=== PATIENT | female | born 1980 | race Caucasian/White ===

== ENCOUNTER 2020-02-20 20:35 | Inpatient (IN) | payer MEDICAID, OTHER ==
[~2020-02-20] VITALS: Ht 160 cm; Wt 68.2 kg
[~2020-02-20 20:35] MED LIST: ETHI1TAB26 PO; LITH300CRT PO
[2020-02-20] MEDS ORDERED: HALOPERIDOL 5 MG TABLET PO PRN (20:45)
[2020-02-20 21:14] VITALS: BP 122/89
[2020-02-20] MEDS ORDERED: ZOLPIDEM TARTRATE 10 MG TABLET PO PRN (21:30)
[2020-02-20] MEDS ORDERED: INFLUENZA VIRUS VACCINE QVS 2020-21 (6MO+)/PF 60 MCG/0.5 ML SYRINGE IM ONE (22:15)
[2020-02-21] MEDS ORDERED: MAGNESIUM HYDROXIDE SUSPENSION 30 ML UDCUP PO PRN (08:15)
[2020-02-21] MEDS ORDERED: GuaiFENesin/D-METHORPHAN [SUGAR-FREE] 200-20MG/10 ML SYRUP UDCUP PO PRN (08:15)
[2020-02-21] MEDS ORDERED: CloNIDine HCL 0.1 MG TABLET PO PRN (08:15)
[2020-02-21] MEDS ORDERED: LOPERAMIDE HCL 2 MG CAPSULE PO PRN (08:15)
[2020-02-21] MEDS ORDERED: ALBUTEROL SULFATE HFA 90 MCG/PUFF 8 GM INHALER IH PRN (08:15)
[2020-02-21] MEDS ORDERED: IBUPROFEN 400 MG TABLET PO PRN (08:15)
[2020-02-21] MEDS ORDERED: PETROLATUM,WHITE 28 GM JELLY TP PRN (08:15)
[2020-02-21] MEDS ORDERED: NICOTINE 14 MG/24 HOUR PATCH TD PRN (08:15)
[2020-02-21] MEDS ORDERED: DOCUSATE SODIUM 100 MG CAPSULE PO PRN (08:15)
[2020-02-21] MEDS ORDERED: MAG HYDROX/AL HYDROX/SIMETH ES 30 ML SUSPENSION UDCUP PO PRN (08:15)
[2020-02-21] MEDS ORDERED: ONDANSETRON HCL 4 MG TABLET PO PRN (08:15)
[2020-02-21] MEDS ORDERED: ACETAMINOPHEN 325 MG TABLET PO PRN (08:15)
[2020-02-21 08:17] VITALS: BP 129/86
[2020-02-21] MEDS: OLANZapine 5 MG TABLET PO SCH ×2 (08:37→16:16)
[2020-02-21 16:39] VITALS: BP 121/88
[2020-02-22 07:00] LABS: CALCIUM, TOTAL 9.9 mg/dL (8.8-10.5); CREATININE 1.02 mg/dL (0.60-1.30); POTASSIUM 4.2 mmol/L (3.5-5.1)
[2020-02-22] MEDS: OLANZapine 5 MG TABLET PO SCH (08:35)
[2020-02-22 16:23] VITALS: BP 130/85
[2020-02-22] MEDS: LORazepam 2 MG TABLET PO PRN (16:58)
[2020-02-23] MEDS: LORazepam 2 MG TABLET PO PRN ×2 (08:28→16:59)
[2020-02-23] MEDS: PALIPERIDONE 3 MG ER TABLET PO SCH (08:28)
[2020-02-23 18:14] VITALS: BP 123/88
[2020-02-24 08:00] VITALS: BP 133/83
[2020-02-24] MEDS: LORazepam 2 MG TABLET PO PRN (08:15)
[2020-02-24] MEDS: PALIPERIDONE 3 MG ER TABLET PO SCH (08:15)
[2020-02-24] MEDS ORDERED: PALI3TAB14 PO (10:30)
== END 2020-02-24 15:00 | disposition home or self-care (01) | DRG 750 ==
LOC: 3EC 20:43
PROVIDERS: ADMIT Psychiatry & Neurology Psychiatry; ATTEND Psychiatry & Neurology Psychiatry
DX: F25.9 Schizoaffective disorder, unspecified (principal); E87.0 Hyperosmolality and hypernatremia; R00.0 Tachycardia, unspecified; Z88.1 Allergy status to other antibiotic agents; Z88.8 Allergy status to other drugs, medicaments and biological substances; Z79.899 Other long term (current) drug therapy; Z28.21 Immunization not carried out because of patient refusal
CPT/HCPCS: 87081

== ENCOUNTER 2020-02-25 09:32 | Inpatient (IN) | payer MEDICAID, OTHER ==
[~2020-02-25] VITALS: Ht 162.6 cm; Wt 69.7 kg
[~2020-02-25 09:32] MED LIST changes: -ETHI1TAB26 PO; -LITH300CRT PO; +PALI3TAB14 PO
[2020-02-25 09:52] LABS: BASOPHILS % (AUTO) 0.5 % (0.0-2.0); EOSINOPHILS % (AUTO) 0.1 % (1.0-6.0); HEMOGLOBIN 12.9 g/dL (12.0-16.0); LYMPHOCYTES # (AUTO) 1.1 K/uL (1.0-4.8); LYMPHOCYTES % (AUTO) 11.1 % (22.0-44.0); MEAN CORPUSCULAR HEMOGLOBIN 29.7 pg (26.0-34.0); MEAN CORPUSCULAR HGB CONC 34.8 G/dL (31.0-37.0); MEAN CORPUSCULAR VOLUME 86 fL (80-100); MONOCYTES # (AUTO) 0.7 K/uL (0.1-1.0); MONOCYTES % (AUTO) 7.3 % (2.0-9.0); NEUTROPHILS # (AUTO) 7.8 K/uL (1.8-7.7); PLATELET COUNT (AUTO) 238 K/uL (150-450); RED BLOOD CELL COUNT(AUTO) 4.34 MIL/uL (4.00-5.20); RED CELL DISTRIBUTION WIDTH 12.8 % (11.5-14.5)
[2020-02-25 10:06] LABS: ANION GAP 11 mmol/L (8-16); CALCIUM, TOTAL 9.3 mg/dL (8.8-10.5); CARBON DIOXIDE 26 mmol/L (22-29); CHLORIDE 105 mmol/L (98-107); CREATININE 1.08 mg/dL (0.60-1.30); GLOMERULAR FILTR. RATE CALC 56 mL/min (>60); GLUCOSE,RANDOM 106 mg/dL (70-110); POTASSIUM 3.7 mmol/L (3.5-5.1); SODIUM SERUM 142 mmol/L (136-145); UREA NITROGEN, BLOOD 16 mg/dL (7-18)
[2020-02-25 10:07] LABS: LITHIUM < 0.20 mmol/L (0.60-1.20)
[2020-02-25 10:13] LABS: ALANINE AMINOTRANSFERASE 56 U/L (12-78); ALBUMIN 3.7 g/dL (3.4-5.0); ALKALINE PHOSPHATASE 61 U/L (46-116); ASPARTATE AMINOTRANSFERASE 36 U/L (15-37); BILIRUBIN,TOTAL 0.9 mg/dL (0.1-1.0); TOTAL PROTEIN, SERUM 7.4 g/dL (6.4-8.2)
[2020-02-25] MEDS ORDERED: ZOLPIDEM TARTRATE 10 MG TABLET PO PRN (12:00)
[2020-02-25] MEDS: LORazepam 2 MG TABLET PO PRN (12:09)
[2020-02-25 12:55] LABS: COVID AG,FIA SOURCE NASOPHARYNGEAL
[2020-02-25 13:05] LABS: BILIRUBIN,URINE NEGATIVE (NEGATIVE); GLUCOSE, URINE (UA) NEGATIVE (NEGATIVE); KETONES,URINE NEGATIVE (NEGATIVE); LEUKOCYTE ESTERASE ,URINE NEGATIVE (NEGATIVE); NITRATE,URINE NEGATIVE (NEGATIVE); OCCULT BLOOD,URINE NEGATIVE (NEGATIVE); PROTEIN,URINE NEGATIVE (NEGATIVE); UROBILINOGEN,URINE 0.2 mg/dL (<=1.0)
[2020-02-25 13:06] LABS: APPEARANCE,URINE CLEAR (CLEAR)
[2020-02-25 13:13] LABS: AMPHET/METH SCREEN,URINE NEGATIVE (NEGATIVE); BARBITURATE SCREEN, URINE NEGATIVE (NEGATIVE); BENZODIAZEPINES SCREEN,URINE NEGATIVE (NEGATIVE); CANNABINOID SCREEN,URINE NEGATIVE (NEGATIVE); COCAINE SCREEN,URINE NEGATIVE (NEGATIVE); METHADONE SCREEN, URINE NEGATIVE (NEGATIVE); OPIATE SCREEN,URINE NEGATIVE (NEGATIVE)
[2020-02-25 13:18] LABS: PHENCYCLIDINE SCREEN,URINE NEGATIVE (NEGATIVE)
[2020-02-25 16:34] VITALS: BP 114/87
[2020-02-25] MEDS ORDERED: INFLUENZA VIRUS VACCINE QVS 2020-21 (6MO+)/PF 60 MCG/0.5 ML SYRINGE IM ONE (17:45)
[2020-02-26 01:50] VITALS: BP 102/78
[2020-02-26] MEDS ORDERED: NICOTINE 14 MG/24 HOUR PATCH TD PRN (06:45)
[2020-02-26] MEDS ORDERED: GuaiFENesin/D-METHORPHAN [SUGAR-FREE] 200-20MG/10 ML SYRUP UDCUP PO PRN (06:45)
[2020-02-26] MEDS ORDERED: ONDANSETRON HCL 4 MG TABLET PO PRN (06:45)
[2020-02-26] MEDS ORDERED: IBUPROFEN 400 MG TABLET PO PRN (06:45)
[2020-02-26] MEDS ORDERED: PETROLATUM,WHITE 28 GM JELLY TP PRN (06:45)
[2020-02-26] MEDS ORDERED: ACETAMINOPHEN 325 MG TABLET PO PRN (06:45)
[2020-02-26] MEDS ORDERED: MAGNESIUM HYDROXIDE SUSPENSION 30 ML UDCUP PO PRN (06:45)
[2020-02-26] MEDS ORDERED: DOCUSATE SODIUM 100 MG CAPSULE PO PRN (06:45)
[2020-02-26] MEDS ORDERED: CloNIDine HCL 0.1 MG TABLET PO PRN (06:45)
[2020-02-26] MEDS ORDERED: MAG HYDROX/AL HYDROX/SIMETH ES 30 ML SUSPENSION UDCUP PO PRN (06:45)
[2020-02-26] MEDS ORDERED: ALBUTEROL SULFATE HFA 90 MCG/PUFF 8 GM INHALER IH PRN (06:45)
[2020-02-26] MEDS ORDERED: LOPERAMIDE HCL 2 MG CAPSULE PO PRN (06:45)
[2020-02-26 08:10] VITALS: BP 118/69
[2020-02-26 08:13] LABS: CHOL/HDL RATIO 4.7 (3.9-5.7); FREE T4 (FREE THYROXINE) 1.22 ng/dL (0.76-1.46); THYROID STIMULATING HORMONE 1.72 uIU/mL (0.36-3.74)
[2020-02-26] MEDS: OLANZapine 10 MG RAPDIS TABLET PO SCH ×2 (09:45→19:31)
[2020-02-26 16:30] VITALS: BP 133/68
[2020-02-27 01:21] VITALS: BP 127/76
[2020-02-27] MEDS: OLANZapine 10 MG RAPDIS TABLET PO SCH ×2 (08:18→20:38)
[2020-02-27] MEDS: LORazepam 2 MG TABLET PO PRN ×2 (08:19→16:10)
[2020-02-27] MEDS: GABAPENTIN 300 MG CAPSULE PO SCH ×2 (10:42→16:10)
[2020-02-27 16:02] VITALS: BP 116/60
[2020-02-27] MEDS: HALOPERIDOL 5 MG TABLET PO PRN (16:10)
[2020-02-28 01:16] VITALS: BP 118/66
[2020-02-28 08:03] VITALS: BP 107/68
[2020-02-28] MEDS: GABAPENTIN 300 MG CAPSULE PO SCH ×2 (08:43→16:38)
[2020-02-28] MEDS: OLANZapine 10 MG RAPDIS TABLET PO SCH ×2 (08:43→20:34)
[2020-02-28] MEDS: LORazepam 2 MG TABLET PO PRN (10:20)
[2020-02-28 16:08] VITALS: BP 124/71
[2020-02-29 01:48] VITALS: BP 120/74
[2020-02-29] MEDS: OLANZapine 10 MG RAPDIS TABLET PO SCH ×2 (08:18→20:48)
[2020-02-29] MEDS: GABAPENTIN 300 MG CAPSULE PO SCH ×2 (08:19→16:32)
[2020-02-29] MEDS: LORazepam 2 MG TABLET PO PRN (10:02)
[2020-02-29] MEDS: HALOPERIDOL 5 MG TABLET PO PRN (10:02)
[2020-02-29 16:11] VITALS: BP 111/75
[2020-03-01 01:18] VITALS: BP 106/72
[2020-03-01] MEDS: HALOPERIDOL 5 MG TABLET PO PRN (08:11)
[2020-03-01] MEDS: OLANZapine 10 MG RAPDIS TABLET PO SCH ×2 (08:11→20:08)
[2020-03-01] MEDS: GABAPENTIN 300 MG CAPSULE PO SCH ×2 (08:11→16:26)
[2020-03-01] MEDS: LORazepam 2 MG TABLET PO PRN ×2 (08:11→16:26)
[2020-03-01 16:03] VITALS: BP 111/61
[2020-03-02 03:47] VITALS: BP 103/68
[2020-03-02 08:15] VITALS: BP 121/72
[2020-03-02] MEDS: GABAPENTIN 300 MG CAPSULE PO SCH ×2 (08:29→16:20)
[2020-03-02] MEDS: OLANZapine 10 MG RAPDIS TABLET PO SCH ×2 (08:29→20:45)
[2020-03-02] MEDS: BuPROPion HCL XL 150 MG ER TABLET PO SCH (11:45)
[2020-03-02 16:11] VITALS: BP 124/78
[2020-03-02] MEDS: LORazepam 2 MG TABLET PO PRN (20:45)
[2020-03-03 00:11] VITALS: BP 122/74
[2020-03-03] MEDS: BuPROPion HCL XL 150 MG ER TABLET PO SCH (08:03)
[2020-03-03] MEDS: LORazepam 2 MG TABLET PO PRN ×2 (08:04→16:02)
[2020-03-03] MEDS: GABAPENTIN 300 MG CAPSULE PO SCH ×2 (08:04→16:02)
[2020-03-03] MEDS: OLANZapine 10 MG RAPDIS TABLET PO SCH ×2 (08:04→20:06)
[2020-03-03 08:16] VITALS: BP 135/73
[2020-03-03 16:26] VITALS: BP 119/78
[2020-03-04 00:37] VITALS: BP 116/75
[2020-03-04] MEDS: BuPROPion HCL XL 150 MG ER TABLET PO SCH (08:05)
[2020-03-04] MEDS: OLANZapine 10 MG RAPDIS TABLET PO SCH ×2 (08:05→21:00)
[2020-03-04] MEDS: HALOPERIDOL 5 MG TABLET PO PRN ×2 (08:05→17:29)
[2020-03-04] MEDS: GABAPENTIN 300 MG CAPSULE PO SCH ×2 (08:05→16:29)
[2020-03-04] MEDS: LORazepam 2 MG TABLET PO PRN ×2 (08:05→17:29)
[2020-03-04 08:08] VITALS: BP 121/82
[2020-03-04 16:00] VITALS: BP 100/74
[2020-03-05 02:00] VITALS: BP 126/78
[2020-03-05] MEDS: LORazepam 2 MG TABLET PO PRN ×2 (09:04→18:45)
[2020-03-05] MEDS: OLANZapine 10 MG RAPDIS TABLET PO SCH ×2 (09:04→20:55)
[2020-03-05] MEDS: HALOPERIDOL 5 MG TABLET PO PRN (09:04)
[2020-03-05] MEDS: BuPROPion HCL XL 150 MG ER TABLET PO SCH (09:04)
[2020-03-05] MEDS: GABAPENTIN 300 MG CAPSULE PO SCH ×2 (09:04→16:02)
[2020-03-05 15:21] VITALS: BP 121/76
[2020-03-05 16:19] VITALS: BP 118/74
[2020-03-05 18:44] VITALS: BP 107/72
[2020-03-06 01:01] VITALS: BP 102/76
[2020-03-06 08:27] VITALS: BP 110/71
[2020-03-06] MEDS: OLANZapine 10 MG RAPDIS TABLET PO SCH ×2 (08:27→20:04)
[2020-03-06] MEDS: BuPROPion HCL XL 150 MG ER TABLET PO SCH (08:27)
[2020-03-06] MEDS: GABAPENTIN 300 MG CAPSULE PO SCH ×2 (08:27→16:04)
[2020-03-06] MEDS: LORazepam 2 MG TABLET PO PRN (08:28)
[2020-03-06 16:07] VITALS: BP 113/86
[2020-03-07 00:12] VITALS: BP 115/64
[2020-03-07] MEDS: OLANZapine 10 MG RAPDIS TABLET PO SCH ×2 (08:14→19:54)
[2020-03-07] MEDS: GABAPENTIN 300 MG CAPSULE PO SCH ×2 (08:18→16:34)
[2020-03-07] MEDS: BuPROPion HCL XL 150 MG ER TABLET PO SCH (08:18)
[2020-03-07] MEDS: LORazepam 2 MG TABLET PO PRN ×2 (08:28→16:34)
[2020-03-07 08:29] VITALS: BP 114/67
[2020-03-07 16:03] VITALS: BP 139/88
[2020-03-08 00:57] VITALS: BP 106/76
[2020-03-08 08:14] VITALS: BP 102/71
[2020-03-08] MEDS: OLANZapine 10 MG RAPDIS TABLET PO SCH ×2 (08:45→20:05)
[2020-03-08] MEDS: GABAPENTIN 300 MG CAPSULE PO SCH ×2 (08:45→16:43)
[2020-03-08] MEDS: BuPROPion HCL XL 150 MG ER TABLET PO SCH (08:45)
[2020-03-08 16:23] VITALS: BP 116/82
[2020-03-09 06:13] VITALS: BP 131/78
[2020-03-09 08:04] VITALS: BP 107/87
[2020-03-09] MEDS: OLANZapine 10 MG RAPDIS TABLET PO SCH ×2 (08:16→20:10)
[2020-03-09] MEDS: GABAPENTIN 300 MG CAPSULE PO SCH ×2 (08:16→16:45)
[2020-03-09] MEDS: BuPROPion HCL XL 150 MG ER TABLET PO SCH (08:16)
[2020-03-09] MEDS: LORazepam 2 MG TABLET PO PRN (10:57)
[2020-03-09 16:07] VITALS: BP 110/70
[2020-03-10 05:44] VITALS: BP 124/77
[2020-03-10] MEDS: OLANZapine 10 MG RAPDIS TABLET PO SCH ×2 (08:04→20:46)
[2020-03-10] MEDS: BuPROPion HCL XL 150 MG ER TABLET PO SCH (08:04)
[2020-03-10] MEDS: GABAPENTIN 300 MG CAPSULE PO SCH ×2 (08:04→15:52)
[2020-03-10 08:05] VITALS: BP 113/63
[2020-03-10] MEDS: LORazepam 2 MG TABLET PO PRN ×2 (08:22→15:52)
[2020-03-10 16:08] VITALS: BP 111/70
[2020-03-11 05:13] VITALS: BP 101/55
[2020-03-11] MEDS: OLANZapine 10 MG RAPDIS TABLET PO SCH (08:04)
[2020-03-11] MEDS: BuPROPion HCL XL 150 MG ER TABLET PO SCH (08:04)
[2020-03-11] MEDS: GABAPENTIN 300 MG CAPSULE PO SCH (08:04)
[2020-03-11 08:41] VITALS: BP 128/80
[2020-03-11] MEDS ORDERED: GABA-1181 PO (13:01)
[2020-03-11] MEDS ORDERED: OLAN10TA3 PO (13:02)
[2020-03-11] MEDS ORDERED: BUPR-93 PO (13:02)
== END 2020-03-11 16:00 | disposition home or self-care (01) | DRG 750 ==
LOC: EMS 09:36 → B3A 12:11 → B2S 03-06 15:36
PROVIDERS: ATTEND Psychiatry & Neurology Psychiatry
DX: F25.0 Schizoaffective disorder, bipolar type (principal); E78.5 Hyperlipidemia, unspecified; Z20.828 Contact with and (suspected) exposure to other viral communicable diseases; F99 Mental disorder, not otherwise specified; R10.13 Epigastric pain; Z91.5 Personal history of self-harm; Z28.21 Immunization not carried out because of patient refusal; Z88.1 Allergy status to other antibiotic agents; Z88.8 Allergy status to other drugs, medicaments and biological substances; Z79.899 Other long term (current) drug therapy
CPT/HCPCS: 84439; 84443; 87426; G0480

== ENCOUNTER 2024-08-15 14:17 | Inpatient (IN) | payer BC, MEDICAID ==
[~2024-08-15] VITALS: Ht 162.6 cm; Wt 91.7 kg
[2024-08-15 08:00] VITALS: BP 130/74; PULSE 74; RESP 20; TEMP 97.8; O2SAT 99
[~2024-08-15 14:17] MED LIST changes: +BUPR-50 PO; +GABA-1181 PO; +OLAN10TA74 PO; -PALI3TAB14 PO
[2024-08-15] MEDS ORDERED: MELATONIN 5 MG TABLET PO PRN (14:30)
[2024-08-15] MEDS ORDERED: LORazepam 2 MG TABLET PO PRN (14:30)
[2024-08-15] MEDS ORDERED: OLANZapine 5 MG RAPDIS TABLET PO PRN (14:30)
[2024-08-15] MEDS: TUBERCULIN, PURIFIED PROTEIN DERIVATIVE 5 TU/0.1 ML SYRINGE ID ONE (14:45)
[2024-08-15] MEDS ORDERED: MAGNESIUM HYDROXIDE SUSPENSION 30 ML UDCUP PO PRN (14:45)
[2024-08-15] MEDS ORDERED: LOPERAMIDE HCL 2 MG CAPSULE PO PRN (14:45)
[2024-08-15] MEDS ORDERED: ACETAMINOPHEN 325 MG TABLET PO PRN (14:45)
[2024-08-15] MEDS ORDERED: GuaiFENesin/D-METHORPHAN [SUGAR-FREE] 200-20MG/10 ML SYRUP UDCUP PO PRN (14:45)
[2024-08-15] MEDS ORDERED: PROMETHAZINE HCL 25 MG TABLET PO PRN (14:45)
[2024-08-15] MEDS ORDERED: HydrOXYzine PAMOATE 50 MG CAPSULE PO PRN (14:45)
[2024-08-15] MEDS ORDERED: MAG HYDROX/ALUMINUM HYD/SIMETH ES 30 ML SUSPENSION UDCUP PO PRN (14:45)
[2024-08-15 17:40] VITALS: BP 118/89; PULSE 93; RESP 18; TEMP 97.7; O2SAT 98
[2024-08-15] MEDS: CYANOCOBALAMIN 1,000 MCG/ML VIAL IM ONE (17:42)
[2024-08-15] MEDS: THIAMINE 100 MG TABLET PO SCH (17:42)
[2024-08-15] MEDS: GABAPENTIN 300 MG CAPSULE PO SCH (17:42)
[2024-08-15] MEDS: PROPRANOLOL HCL 10 MG TABLET PO SCH (17:42)
[2024-08-15] MEDS: LITHIUM CARBONATE 300 MG CAPSULE PO SCH (17:43)
[2024-08-15 18:16] LABS: GLUCOMETER DEV NAME(LOC) POC.BV; POC SARS-COV2 AG, FIA NEGATIVE (NEGATIVE)
[2024-08-15] MEDS ORDERED: DIAZEPAM 5 MG TABLET PO PRN (19:00)
[2024-08-15] MEDS ORDERED: NICOTINE 21 MG/24 HOUR PATCH TD PRN (20:00)
[2024-08-15 20:19] VITALS: BP_SYST 148; BP_SYST 165; BP_DIAS 107; BP_DIAS 65; PULSE 53; PULSE 91; RESP 16; TEMP 97.7; TEMP 98.2; O2SAT 95; O2SAT 97
[2024-08-15] MEDS: OLANZapine 10 MG RAPDIS TABLET PO SCH (20:32)
[2024-08-15] MEDS: ZOLPIDEM TARTRATE 10 MG TABLET PO PRN (20:42)
[2024-08-15 21:06] VITALS: BP 101/82; PULSE 95; RESP 16; TEMP 97.8; O2SAT 96
[2024-08-16 08:10] VITALS: BP 120/84; PULSE 87; RESP 17; TEMP 97.8; O2SAT 98
[2024-08-16] MEDS: NALTREXONE HCL 50 MG TABLET PO SCH (08:24)
[2024-08-16] MEDS: BuPROPion HCL XL 150 MG ER TABLET PO SCH (08:24)
[2024-08-16] MEDS: LamoTRIgine 25 MG TABLET PO SCH (08:24)
[2024-08-16] MEDS: FOLIC ACID 1 MG TABLET PO SCH (08:24)
[2024-08-16] MEDS: MULTIVITAMINS WITH MINERALS, THERAPEUTIC TABLET PO SCH (08:24)
[2024-08-16] MEDS ORDERED: NICOTINE 21 MG/24 HOUR PATCH TD SCH (09:00)
[2024-08-16] MEDS: ClonazePAM 0.5 MG TABLET PO SCH (17:16)
[2024-08-16 20:06] VITALS: BP 100/61; PULSE 94; RESP 19; TEMP 98.1; O2SAT 97
[2024-08-16] MEDS: OLANZapine 10 MG RAPDIS TABLET PO SCH (21:20)
[2024-08-17 10:11] LABS: BASOPHILS % (AUTO) 0.7 % (0.0-2.0); EOSINOPHILS % (AUTO) 1.7 % (1.0-6.0); HEMATOCRIT 39.1 % (36-46); LYMPHOCYTES % (AUTO) 27.5 % (22.0-44.0); MEAN CORPUSCULAR HEMOGLOBIN 27.5 pg (26.0-34.0); MEAN CORPUSCULAR HGB CONC 33.3 G/dL (31.0-37.0); MEAN CORPUSCULAR VOLUME 82 fL (80-100); MONOCYTES # (AUTO) 0.7 K/uL (0.1-1.0); NEUTROPHILS # (AUTO) 4.4 K/uL (1.8-7.7); NEUTROPHILS % (AUTO) 60.1 % (40.0-70.0); PLATELET COUNT (AUTO) 268 K/uL (150-450); RED BLOOD CELL COUNT(AUTO) 4.74 MIL/uL (4.00-5.20); RED CELL DISTRIBUTION WIDTH 13.8 % (11.5-14.5); WHITE BLOOD COUNT (AUTO) 7.3 K/uL (4.5-11.0)
[2024-08-17 10:15] LABS: HEMOGLOBIN A1C 4.8 % (3.8-5.6)
[2024-08-17 11:04] LABS: ALANINE AMINOTRANSFERASE 27 U/L (12-78); ALBUMIN 3.2 g/dL (3.4-5.0); ALKALINE PHOSPHATASE 65 U/L (46-116); ANION GAP 10 mmol/L (8-16); ASPARTATE AMINOTRANSFERASE 17 U/L (15-37); BILIRUBIN,TOTAL 0.7 mg/dL (0.1-1.0); CALCIUM, TOTAL 9.1 mg/dL (8.8-10.5); CARBON DIOXIDE 25 mmol/L (22-29); CHLORIDE 108 mmol/L (98-107); CHOL/HDL RATIO 3.1 (3.9-5.7); CHOLESTEROL 167 mg/dL (131-200); CREATININE 0.85 mg/dL (0.60-1.30); GLOMERULAR FILTR. RATE CALC > 60 mL/min (>60); GLUCOSE,RANDOM 85 mg/dL (70-110); HDL CHOLESTEROL 54 mg/dL (40-60); LDL CHOL (CALC.) 93 mg/dL (0-130); POTASSIUM 4.2 mmol/L (3.5-5.1); SODIUM SERUM 143 mmol/L (136-145); TOTAL PROTEIN, SERUM 6.8 g/dL (6.4-8.2); TRIGLYCERIDES 100 mg/dL (15-150); UREA NITROGEN, BLOOD 18 mg/dL (7-18)
[2024-08-17 12:47] LABS: THYROID STIMULATING HORMONE 1.55 uIU/mL (0.36-3.74)
[2024-08-17 14:06] VITALS: BP 133/67; PULSE 96; RESP 16; TEMP 98.3; O2SAT 97
[2024-08-17] MEDS ORDERED: PROP10TA72 PO (16:02)
[2024-08-17] MEDS ORDERED: LAMO25TA36 PO (16:02)
[2024-08-17] MEDS ORDERED: GABA-1181 PO (16:02)
[2024-08-17] MEDS ORDERED: CLON-592 PO (16:02)
[2024-08-17] MEDS ORDERED: MELA5TAB40 PO (16:02)
[2024-08-17] MEDS ORDERED: OLAN10TA26 PO (16:02)
[2024-08-17 16:22] VITALS: BP 139/74; PULSE 88; RESP 18; TEMP 98.4; O2SAT 99
== END 2024-08-17 15:00 | disposition home or self-care (01) | DRG 885 ==
LOC: B2X 16:13
PROVIDERS: ADMIT Psychiatry & Neurology Psychiatry; ATTEND Psychiatry & Neurology Psychiatry
PROC: GZHZZZZ Group Psychotherapy (ICD-10-PCS; principal; 2024-08-15)
PROC: GZ56ZZZ Individual Psychotherapy, Supportive (ICD-10-PCS; 2024-08-15)
DX: F31.30 Bipolar disorder, current episode depressed, mild or moderate severity, unspecified (principal); E78.5 Hyperlipidemia, unspecified; F17.200 Nicotine dependence, unspecified, uncomplicated; F25.9 Schizoaffective disorder, unspecified; F14.90 Cocaine use, unspecified, uncomplicated; F41.9 Anxiety disorder, unspecified; K21.9 Gastro-esophageal reflux disease without esophagitis; Z20.822 Contact with and (suspected) exposure to COVID-19; Z55.9 Problems related to education and literacy, unspecified; Z59.9 Problem related to housing and economic circumstances, unspecified; Z63.9 Problem related to primary support group, unspecified; Z65.3 Problems related to other legal circumstances; Z88.0 Allergy status to penicillin; Z91.148 Patient's other noncompliance with medication regimen for other reason; Z79.899 Other long term (current) drug therapy
CPT/HCPCS: 80053; 80061; 83036; 84439; 84443; 84703; 85025; 86592; J3420